=== PATIENT | female | born 1990 | race Caucasian/White ===

== ENCOUNTER 2019-02-22 15:11 | Inpatient (IN) | payer BC ==
[2019-02-23 03:47] VITALS: BMI 29.9
[2019-02-23] MEDS ORDERED: hydrALAZINE 20 MG/ML VIAL SLOW IVP PRN (03:55)
[2019-02-23] MEDS ORDERED: Acetaminophen 500 MG TAB PO PRN (03:55)
[2019-02-23] MEDS ORDERED: NS w/ Oxytocin 10 units 500 ML IV SCH (03:55)
[2019-02-23] MEDS ORDERED: Lidocaine 1% (PF) 30 ML VIAL SC PRN (03:55)
[2019-02-23] MEDS ORDERED: Promethazine HCl 25 MG/ML VIAL IM PRN ×2 (03:55→12:47)
[2019-02-23] MEDS ORDERED: NS / Oxytocin 40 units/1000ml 1,000 ML IV PRN (03:55)
[2019-02-23] MEDS ORDERED: Butorphanol Tartrate 1 MG/ML VIAL SLOW IVP PRN (03:55)
[2019-02-23] MEDS ORDERED: Zolpidem Tartrate 5 MG TAB PO PRN (03:55)
[2019-02-23] MEDS: Lactated Ringer's 1,000 ML IV SCH ×3 (04:27→18:00)
[2019-02-23] MEDS: Misoprostol 100 MCG TAB VAG SCH ×3 (04:27→19:28)
[2019-02-23 04:43] LABS: Hemoglobin 10.6 g/dL (12.0-16.0); Mean Corpuscular Hemoglobin 25.1 pg (27.0-31.0); Mean Corpuscular Volume 78.6 fL (78.0-98.0); Mean Platelet Volume 8.8 fL (7.4-10.4); Platelet Count 197 thou/uL (130-400); RBC Distribution Width 14.6 % (11.5-14.5); White Blood Cell (WBC) Count 12.2 thou/uL (4.8-10.8)
[2019-02-23 05:23] LABS: HBSAg Index 0.28 S/CO (0-0.99); Hep B Surf Ag Non-Reactive S/CO (NonReactive); Syphilis Antibody Nonreactive (Nonreactive); Syphilis Antibody Index 0.03 S/CO (<1.00 Non-Reactive)
[2019-02-23] MEDS ORDERED: Bupivacaine/Epinephrine 0.5% 10 ML VIAL ONE (11:11)
[2019-02-23] MEDS ORDERED: Lidocaine 2% MPF 10 ML AMP (For Epidural Use) ONE (11:11)
[2019-02-23] MEDS ORDERED: Fentanyl 4 mcg/Bup 0.1% Cadd 100 ML ONE ×2 (11:37→19:23)
[2019-02-23] MEDS ORDERED: Naloxone HCl 0.4 mg/ml Vial IVP PRN ×2 (12:47)
[2019-02-23] MEDS ORDERED: diphenhydrAMINE 50 MG/ML VIAL IVP PRN (12:47)
[2019-02-23] MEDS ORDERED: Acetaminophen 325 MG TAB PO PRN (12:47)
[2019-02-23] MEDS ORDERED: Ondansetron PF 4 MG/2 ML Vial IVP PRN (12:47)
[2019-02-23] MEDS ORDERED: Lactated Ringer's 500 ML IV PRN (12:47)
[2019-02-23] MEDS ORDERED: ePHEDrine/0.9% NaCl/PF SYRINGE 50 mg/10 ml SLOW IVP PRN (12:47)
[2019-02-23] MEDS ORDERED: Fentanyl 4 mcg/Bupivacaine 0.1% Cassette 100 ML EPIDURAL SCH (13:00)
[2019-02-23] MEDS ORDERED: Communication Order-Pharmacy FS SCH (13:00)
[2019-02-23] MEDS: Ondansetron PF 4 MG/2 ML Vial IVP PRN (16:33)
[2019-02-24] MEDS: NS / Oxytocin 40 units/1000ml 1,000 ML IV SCH ×2 (00:30→02:58)
[2019-02-24] MEDS ORDERED: Bisacodyl 10 MG SUPP PR PRN (00:43)
[2019-02-24] MEDS ORDERED: hydrALAZINE 20 MG/ML VIAL SLOW IVP PRN (00:43)
[2019-02-24] MEDS ORDERED: Misoprostol 200 MCG TAB VAG PRN (00:43)
[2019-02-24] MEDS ORDERED: Preparation H Ointment 28 GM TUBE PR PRN (00:43)
[2019-02-24] MEDS ORDERED: Milk Of Magnesia 30 ML UDCUP PO PRN (00:43)
[2019-02-24] MEDS ORDERED: diphenhydrAMINE 25 MG CAP PO PRN (00:43)
[2019-02-24] MEDS ORDERED: Lanolin Ointment 7 GM TUBE TOP PRN (00:43)
[2019-02-24] MEDS ORDERED: Benzocaine-Menthol 82.5 ML CAN TOP PRN (00:43)
--- NOTE | 2019-02-24 00:46 | PDOC.OPDEL ---
OB Operative/Delivery Note Delivery Dr/Surgeon: Norm Pre-Delivery Diagnosis: elective induction Procedure/Post Delivery Dx: spontaneous vaginal delivery Weeks gestation: 40 Anesthesia: epidural - Findings A Sex: female Weight: 7 lb 8 oz - 1 min: 8 - 5 min: 9 - Additional Findings/Plan Placenta delivered: spontaneous Repaired Obstetrical Laceration: 2nd degree Post delivery plan: routine recovery
[2019-02-24] MEDS: Ondansetron PF 4 MG/2 ML Vial IVP PRN (01:01)
[2019-02-24] MEDS: Misoprostol 100 MCG TAB VAG SCH (02:03)
[2019-02-24] MEDS: Ibuprofen 800 MG TAB PO SCH ×3 (02:29→20:26)
[2019-02-24] MEDS: traMADol HCl 50 MG TAB PO PRN ×3 (05:30→22:10)
[2019-02-24] MEDS ORDERED: Adacel (T-DAP) 0.5 ML SYRINGE IM ONE (09:00)
[2019-02-24] MEDS: Docusate Calcium (SURFAK) 240 MG CAP PO SCH ×2 (09:01→20:26)
[2019-02-24] MEDS: Prenatal Vitamin 1 TAB PO SCH (09:01)
[2019-02-24] MEDS: Ferrous Sulfate 325 MG TAB PO SCH ×2 (10:13→18:42)
--- NOTE | 2019-02-24 13:14 | PDOC.PP ---
Post Progress Note Post Day #: 1 PO intake tolerated: yes Flatus: yes Ambulation: yes Vital Signs (12 hours) Temp Pulse Resp BP Pulse Ox 02/24/19 11:59 97.7 F 68 21 H 107/65 98 02/24/19 08:35 98.2 F 62 20 104/59 L 98 02/24/19 08:00 98 02/24/19 05:10 98.2 F 77 20 95/53 L 02/24/19 04:20 98.1 F 80 20 105/57 L 02/24/19 03:10 98.2 F 71 20 109/64 98 Weight Weight 153 lb - Physical Examination Abdominal: + bowel sounds, lochia, no distention, appropriately TTP Result Diagrams: 02/23/19 04:31 Additional Labs: Post Labs Blood Type A POSITIVE 02/23/19 05:14 Hep Bs Antigen Non-Reactive S/CO (NonReactive) 02/23/19 04:31 - Assessment/Plan Doing well post day 0-1. Routine post care. D/c in AM.
[2019-02-25] MEDS: Ibuprofen 800 MG TAB PO SCH ×2 (05:39→12:51)
[2019-02-25] MEDS: Docusate Calcium (SURFAK) 240 MG CAP PO SCH (08:47)
[2019-02-25] MEDS: Prenatal Vitamin 1 TAB PO SCH (08:48)
[2019-02-25] MEDS: Ferrous Sulfate 325 MG TAB PO SCH (08:50)
--- NOTE | 2019-02-25 10:47 | PDOC.PP ---
Post Progress Note Post Day #: 2 Subjective: Feeling well. baby may need to go on bili lights pending labs. PO intake tolerated: yes Flatus: yes Ambulation: yes Vital Signs (12 hours) Temp Pulse Resp BP Pulse Ox 02/25/19 08:17 98.3 F 66 20 93/60 99 02/25/19 01:30 98.0 F 77 18 111/69 Weight Weight 153 lb Result Diagrams: 02/23/19 04:31 Additional Labs: Post Labs Blood Type A POSITIVE 02/23/19 05:14 Hep Bs Antigen Non-Reactive S/CO (NonReactive) 02/23/19 04:31 - Assessment/Plan post day 2. Doing well. D/c home to bed and breakfast pending lab. f/u 6 weeks.
[2019-02-25] MEDS: traMADol HCl 50 MG TAB PO PRN ×2 (10:54→16:55)
[2019-02-25 16:25] VITALS: BP 125/65; TEMP 98.9
== END 2019-02-25 17:47 | disposition home or self-care (01) | DRG 807 ==
LOC: L&D 02-23 03:15 → 3SW 02-24 03:10
PROVIDERS: ADMIT Obstetrics & Gynecology; ATTEND Obstetrics & Gynecology
PROC: 10E0XZZ Delivery of Products of Conception, External Approach (ICD-10-PCS; principal; 2019-02-24)
PROC: 0KQM0ZZ Repair Perineum Muscle, Open Approach (ICD-10-PCS; 2019-02-24)
DX: O70.1 Second degree perineal laceration during delivery (principal); Z37.0 Single live birth; O48.0 Post-term pregnancy; Z3A.40 40 weeks gestation of pregnancy
CPT/HCPCS: 36415; 51702; 85027; 86780; 86850; 86900; 86901; 87340; J2001; J2405; J2590; J3490